=== PATIENT | male | born 1975 | race Caucasian/White ===

== ENCOUNTER 2022-10-19 22:03 | Emergency (ER) | payer MEDICAID ==
[~2022-10-19] VITALS: Ht 162.6 cm; Wt 81.6 kg
[2022-10-19 22:05] VITALS: BP 179/100; PULSE 102; RESP 18; TEMP 97.9; O2SAT 100
--- NOTE | 2022-10-19 22:08 | NUR ---
TO LOBBY A/W BED AMBULATORY
--- NOTE | 2022-10-19 23:12 | NUR ---
PT TO BED 07
[2022-10-19 23:32] VITALS: O2SAT 100
--- NOTE | 2022-10-19 23:45 | NUR ---
46YO M BIB SELF C/O ABSCESS TO POSTERIOR RIGHT THIGH. PT STATES HES HAD THIS ABSCESS SINCE 10/15/22. PT STATES HE HIS ATTEMPTED TO "POP" THE ABSCESS AND A MODERATE AMOUNT SECRETIONS CAME OUT. PT COVERED THE ABSCESS WITH A BANDAID. NO ACTIVE BLEEDING NOTED. PT DENIES PAIN. AXO4. CALL LIGHT WITHIN REACH AND BED IN LOWEST POSITION. NKDA NO MED HX
--- NOTE | 2022-10-20 00:29 | NUR ---
PT TAKEN FOR CT
[2022-10-20 00:34] LABS: BASOPHILS # (AUTO) 0.1 K/uL (0.00-0.22); BASOPHILS % (AUTO) 0.7 % (0.0-2.0); EOSINOPHILS # (AUTO) 0.1 K/uL (0-0.4); HEMATOCRIT 41.6 % (36-52); HEMOGLOBIN 14.2 g/dL (12.0-18.0); LYMPHOCYTES # (AUTO) 1.7 K/uL (2.0-11.5); LYMPHOCYTES % (AUTO) 19.5 % (20.5-51.1); MEAN CORPUSCULAR HEMOGLOBIN 29 pg (27-31); MEAN CORPUSCULAR HGB CONC 34 g/dL (33-37); MEAN CORPUSCULAR VOLUME 85.6 fL (80-94); MONOCYTES # (AUTO) 0.8 K/uL (0.8-1.0); MONOCYTES % (AUTO) 9.6 % (1.7-9.3); NEUTROPHILS % (AUTO) 69.2 % (42.2-75.2); PLATELET COUNT (AUTO) 233 K/uL (140-450); RED BLOOD CELL COUNT(AUTO) 4.86 MIL/uL (4.20-6.10); RED CELL DISTRIBUTION WIDTH 12.9 % (11.6-13.7); WHITE BLOOD COUNT (AUTO) 8.6 K/uL (4.8-10.8)
[2022-10-20 00:50] LABS: ALBUMIN 3.6 g/dL (3.4-5.0); ANION GAP 10.6 (8-16); CARBON DIOXIDE 27.2 mmol/L (21-32); CREATININE 0.9 mg/dL (0.6-1.3); POTASSIUM 3.8 mmol/L (3.5-5.1); TOTAL BILIRUBIN 0.4 mg/dL (0.0-1.0)
[2022-10-20 02:24] VITALS: O2SAT 98
--- NOTE | 2022-10-20 02:46 | NUR ---
PT LYING IN BED IN ROOM WITH NO S/S PAIN OR DISTRESS. 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 VSS. BED IN LOWEST POSITION. CALL LIGHT WITHIN REACH.
[2022-10-20 04:26] VITALS: O2SAT 97
--- NOTE | 2022-10-20 05:05 | NUR ---
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 VSS. BED IN LOWEST POSITION. SIDE RAILS UP X2. CALL LIGHT WITHIN REACH.
[2022-10-20] MEDS ORDERED: SULF-59 PO (05:09)
[2022-10-20] MEDS ORDERED: ACET-10509 PO (05:09)
[2022-10-20] MEDS ORDERED: IBUP-2218 PO (05:09)
--- NOTE | 2022-10-20 07:06 | NUR ---
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 BED IN LOWEST POSITION. SIDE RAILS UP X2. CALL LIGHT WITHIN REACH. NO C/O PAIN OR DISTRESS AT THIS TIME.
[2022-10-20 07:18] VITALS: O2SAT 97
--- NOTE | 2022-10-20 07:19 | NUR ---
Pt report given to JOYCE MOREL. Transfer of care at this time.
[2022-10-20 07:56] VITALS: TEMP 97.1
[2022-10-20 08:16] VITALS: BP 124/79; PULSE 74; RESP 17; O2SAT 98
--- NOTE | 2022-10-20 08:17 | NUR ---
Patient discharged with v/s stable. Written and verbal after care instructions given and explained. Patient alert, oriented and verbalized understanding of instructions. Ambulatory with steady gait. All questions addressed prior to discharge. ID band removed. Patient advised to follow up with PMD. Rx of BACTRIM, MOTRIN given. Patient educated on indication of medication including possible reaction and side effects. Opportunity to ask questions provided and answered.
== END 2022-10-20 08:17 | disposition home or self-care (01) ==
LOC: MED 22:03
DX: M79.651 Pain in right thigh (principal); Z79.899 Other long term (current) drug therapy
CPT/HCPCS: 36415; 73701; 80053; 83605; 85025; 87040; 99285; Q9967